=== PATIENT | female | born 1995 | race African-American/Black ===

== ENCOUNTER 2018-08-30 00:04 | Emergency (ER) | payer BC, OTHER ==
[2018-08-30 00:26] VITALS: BP 145/93
[2018-08-30] MEDS ORDERED: Ketorolac 60 MG/2 ML SDV IM ONE (01:06)
--- NOTE | 2018-08-30 01:08 | EDM.PDOC ---
ED HPI GENERAL MEDICAL PROBLEM - General Chief Complaint: Headache Stated Complaint: PT HAS MIGRAINE Time Seen by Provider: 08/30/18 01:03 - History of Present Illness INITIAL COMMENTS - FREE TEXT/NARRATIVE: HISTORY AND PHYSICAL: History of present illness: Patient 33-year-old black female presents with a concern of headache she states she had headaches prior she described this as a migraine although she does not carry that diagnosis to the no fever no chills no trauma no nausea vomiting or other complaints. Review of systems: As per history of present illness and below otherwise all systems reviewed and negative. Past medical history: As per history of present illness and as reviewed below otherwise noncontributory. Surgical history: As per history of present illness and as reviewed below otherwise noncontributory. Social history: No reported history of drug or alcohol abuse. Family history: As per history of present illness and as reviewed below otherwise noncontributory. Physical exam: HEENT: Atraumatic, normocephalic, pupils reactive, negative for conjunctival pallor or scleral icterus, mucous membranes moist, throat clear, neck supple, nontender, trachea midline. Lungs: Clear to auscultation, breath sounds equal bilaterally, chest nontender. Heart: S1S2, regular, negative for clicks, rubs, or JVD. Abdomen: Soft, nondistended, nontender. Negative for masses or hepatosplenomegaly. Negative for costovertebral tenderness. Pelvis: Stable nontender. Genitourinary: Deferred. Rectal: Deferred. Extremities: Atraumatic, negative for cords or calf pain. Neurovascular unremarkable. Neuro: Awake, alert, oriented. Cranial nerves II through XII unremarkable. Cerebellum unremarkable. Motor and sensory unremarkable throughout. Exam nonfocal. Diagnostics: CT brain Therapeutics: Toradol 60 mg IM Impression: #1 cephalgia Definitive disposition and diagnosis as appropriate pending reevaluation and review of above. head Pain Score (Numeric/FACES): 9 - Related Data Allergies Allergy/AdvReac Type Severity Reaction Status Date / Time No Known Allergies Allergy Verified 08/30/18 00:27 Home Meds: Home Meds . [No Known Home Meds] 08/30/18 [History] Past Medical History Neurological History: Reports: Migraines - Infectious Disease History Infectious Disease History: Reports: Meningitis - Past Surgical History Other Musculoskeletal Surgeries/Procedures:: hx exc of left ganglion wrist cyst , Rt ACL repair, breast augmentation Social & Family History - Family History Family Medical History: Noncontributory - Tobacco Use Smoking Status *Q: Never Smoker - Recreational Drug Use Recreational Drug Use: No ED ROS GENERAL - Review of Systems Review Of Systems: ROS reveals no pertinent complaints other than HPI. ED EXAM, GENERAL - Physical Exam Exam: See Below (dictation) Course - Vital Signs Last Recorded V/S: Last Vital Signs Temp 36.4 C 08/30/18 00:04 Pulse 90 08/30/18 00:04 Resp 18 08/30/18 00:04 BP 145/93 H 08/30/18 00:04 Pulse Ox 99 08/30/18 00:04 Departure - Departure Time of Disposition: 01:08 Disposition: Home, Self-Care 01 Condition: Good Clinical Impression: Cephalgia - Discharge Information Referrals: PCP,None [Primary Care Provider] - Additional Instructions: The following information is given to patients seen in the emergency department who are being discharged to home. This information is to outline your options for follow-up care. We provide all patients seen in our emergency department with a follow-up referral. The need for follow-up, as well as the timing and circumstances, are variable depending upon the specifics of your emergency department visit. If you don't have a primary care physician on staff, we will provide you with a referral. We always advise you to contact your personal physician following an emergency department visit to inform them of the circumstance of the visit and for follow-up with them and/or the need for any referrals to a consulting specialist. The emergency department will also refer you to a specialist when appropriate. This referral assures that you have the opportunity for followup care with a specialist. All of these measure are taken in an effort to provide you with optimal care, which includes your followup. Under all circumstances we always encourage you to contact your private physician who remains a resource for coordinating your care. When calling for followup care, please make the office aware that this follow-up is from your recent emergency room visit. If for any reason you are refused follow-up, please contact the [facility] emergency department at and asked to speak to the emergency department charge nurse. [facility] [address] [place] [id number] Motrin/Tylenol as directed follow-up primary care above call to schedule routine appointment and return as needed as discussed
--- NOTE | 2018-08-30 01:28 | CT ---
INDICATION: Headache TECHNIQUE: CT Head without i.v. contrast. COMPARISON: None FINDINGS: CSF space: The ventricles are normal for age. Brain: No evidence of mass, acute infarction or hemorrhage is seen. No mass-effect or midline shift is seen. The brain parenchyma is otherwise normal in appearance with preservation of the sims-white matter junction. Calvarium: The visualized paranasal sinuses are well aerated. The mastoid air cells are clear. The visualized orbits are grossly unremarkable. The calvarium is unremarkable in appearance with no fractures identified. IMPRESSION: 1. No evidence of acute infarction, intracranial hemorrhage, or mass-effect seen. Please note that all CT scans at this facility use dose modulation, iterative reconstruction, and/or weight-based dosing when appropriate to reduce radiation dose to as low as reasonably achievable. Dictated by: Alex Samaniego MD @ 08/30/2018 01:26:29 (Electronically Signed)
== END 2018-08-30 01:46 | disposition home or self-care (01) ==
LOC: MW.ED 00:04
DX: R51 Headache (principal)
CPT/HCPCS: 70450; 96372; 99283; J1885

== ENCOUNTER 2018-12-26 08:16 | Emergency (ER) | payer BC, OTHER ==
--- NOTE | 2018-12-26 08:33 | EDM.PDOC ---
ED HPI GENERAL MEDICAL PROBLEM - General Chief Complaint: ENT Problem Stated Complaint: SORE THROAT Time Seen by Provider: 12/26/18 08:27 - History of Present Illness INITIAL COMMENTS - FREE TEXT/NARRATIVE: HISTORY AND PHYSICAL: History of present illness: Patient is a 23-year-old black female with no significant past medical history who presents with a concern of sore throat 2 weeks she denies fever chills nausea vomiting or other complaints Review of systems: As per history of present illness and below otherwise all systems reviewed and negative. Past medical history: As per history of present illness and as reviewed below otherwise noncontributory. Surgical history: As per history of present illness and as reviewed below otherwise noncontributory. Social history: No reported history of drug or alcohol abuse. Family history: As per history of present illness and as reviewed below otherwise noncontributory. Physical exam: HEENT: Atraumatic, normocephalic, pupils reactive, negative for conjunctival pallor or scleral icterus, mucous membranes moist, throat clear, neck supple, nontender, trachea midline. Lungs: Clear to auscultation, breath sounds equal bilaterally, chest nontender. Heart: S1S2, regular, negative for clicks, rubs, or JVD. Abdomen: Soft, nondistended, nontender. Negative for masses or hepatosplenomegaly. Negative for costovertebral tenderness. Pelvis: Stable nontender. Genitourinary: Deferred. Rectal: Deferred. Extremities: Atraumatic, negative for cords or calf pain. Neurovascular unremarkable. Neuro: Awake, alert, oriented. Cranial nerves II through XII unremarkable. Cerebellum unremarkable. Motor and sensory unremarkable throughout. Exam nonfocal. Diagnostics: Rapid strep Therapeutics: None Impression: #1 medical screening exam Definitive disposition and diagnosis as appropriate pending reevaluation and review of above. Head Pain Score (Numeric/FACES): 3 - Related Data Allergies Allergy/AdvReac Type Severity Reaction Status Date / Time No Known Allergies Allergy Verified 08/30/18 00:27 Home Meds: Home Meds . [No Known Home Meds] 08/30/18 [History] Past Medical History Neurological History: Reports: Migraines - Infectious Disease History Infectious Disease History: Reports: Meningitis - Past Surgical History Other Musculoskeletal Surgeries/Procedures:: hx exc of left ganglion wrist cyst , Rt ACL repair, breast augmentation Social & Family History - Family History Family Medical History: Noncontributory ED ROS GENERAL - Review of Systems Review Of Systems: ROS reveals no pertinent complaints other than HPI. ED EXAM, GENERAL - Physical Exam Exam: See Below (The dictation) Course - Vital Signs Last Recorded V/S: Last Vital Signs Temp 36.0 C 12/26/18 08:27 Pulse 77 12/26/18 08:27 Resp 20 12/26/18 08:27 BP 124/76 12/26/18 08:27 Pulse Ox 97 12/26/18 08:27 - Orders/Labs/Meds Orders: Active Orders 24 hr Category Date Time Status CULTURE STREP A CONFIRMATION [RM] Stat Lab 12/26/18 08:28 Results STREP SCRN A RAPID W CULT CONF [RM] Stat Lab 12/26/18 08:28 Results Departure - Departure Time of Disposition: 09:23 Disposition: Home, Self-Care 01 Condition: Good Clinical Impression: Encounter for medical screening examination - Discharge Information Referrals: PCP,Unknown [Primary Care Provider] - Forms: ED Department Discharge Additional Instructions: The following information is given to patients seen in the emergency department who are being discharged to home. This information is to outline your options for follow-up care. We provide all patients seen in our emergency department with a follow-up referral. The need for follow-up, as well as the timing and circumstances, are variable depending upon the specifics of your emergency department visit. If you don't have a primary care physician on staff, we will provide you with a referral. We always advise you to contact your personal physician following an emergency department visit to inform them of the circumstance of the visit and for follow-up with them and/or the need for any referrals to a consulting specialist. The emergency department will also refer you to a specialist when appropriate. This referral assures that you have the opportunity for followup care with a specialist. All of these measure are taken in an effort to provide you with optimal care, which includes your followup. Under all circumstances we always encourage you to contact your private physician who remains a resource for coordinating your care. When calling for followup care, please make the office aware that this follow-up is from your recent emergency room visit. If for any reason you are refused follow-up, please contact the [facility] emergency department at and asked to speak to the emergency department charge nurse. [facility] [address] [place] [id number] Follow-up primary care above Motrin/Tylenol as directed push fluids and return as needed as discussed - My Orders Last 24 Hours: My Active Orders 12/26/18 08:28 CULTURE STREP A CONFIRMATION [RM] Stat STREP SCRN A RAPID W CULT CONF [RM] Stat - Assessment/Plan Last 24 Hours: My Active Orders 12/26/18 08:28 CULTURE STREP A CONFIRMATION [RM] Stat STREP SCRN A RAPID W CULT CONF [RM] Stat
[2018-12-26 08:39] VITALS: BP 124/76
== END 2018-12-26 09:42 | disposition home or self-care (01) ==
LOC: MW.ED 08:16
DX: Z00.00 Encounter for general adult medical examination without abnormal findings (principal)
CPT/HCPCS: 87081; 87880-QW; 99283

== ENCOUNTER 2019-03-22 05:38 | Emergency (ER) | payer BC, OTHER ==
[2019-03-22] MEDS ORDERED: methylPREDNISolone Sodium Succinate 125 MG/2 ML SDV IM ONE (05:49)
[2019-03-22] MEDS ORDERED: hydrOXYzine Pamoate 25 MG Cap PO ONE (05:49)
--- NOTE | 2019-03-22 05:55 | EDM.PDOC ---
ED HPI GENERAL MEDICAL PROBLEM - General Chief Complaint: Allergic Reaction Stated Complaint: ALLERGIC REACTION Time Seen by Provider: 03/22/19 05:44 - History of Present Illness INITIAL COMMENTS - FREE TEXT/NARRATIVE: HISTORY AND PHYSICAL: History of present illness: The patient is a 23-year-old female who presents with complaints of swollen eyelids bilaterally that started last night and has not improved when she woke this morning. The patient said that she notices swelling of her lower eyelids bilaterally but no other swelling or rashes and took Benadryl and went to sleep. When she woke this morning she still had the swelling and it seemed to be worse and she still had no rash no itching no eye drainage no sore throat or trouble breathing but she says that her throat feels a little scratchy. She is not sure which she may have contacted and touched her eyes with that she did wear makeup yesterday. She has no blurred vision but she has difficulty seeing because her eyelids are very swollen. She has no swelling of her mouth or throat or face. Review of systems: As per history of present illness and below otherwise all systems reviewed and negative. Past medical history: As per history of present illness and as reviewed below otherwise noncontributory. Surgical history: As per history of present illness and as reviewed below otherwise noncontributory. Social history: No reported history of drug or alcohol abuse. Family history: As per history of present illness and as reviewed below otherwise noncontributory. Physical exam: General: Well-developed well-nourished female who is speaking clearly and easily in the ED without breathlessness hoarse or muffled voice. HEENT: Atraumatic, normocephalic, pupils reactive, negative for conjunctival pallor or scleral icterus, mucous membranes moist, throat clear, neck supple, nontender, trachea midline. Sclera is slightly injected on the right but normal on the left and there is only clear tears but no drainage or crusting is appreciated. EOMs are intact and there is no periorbital crepitus tenderness or defects. Bilateral eyelids are swollen right greater than left and the swelling seems to originate at the eyelash margin and extend superiorly. There is no other oropharyngeal swelling or facial swelling appreciated and throat is completely clear. Lungs: Clear to auscultation, breath sounds equal bilaterally, chest nontender. There is no wheezing or stridor Heart: S1S2, regular rate and rhythm no overt murmurs Abdomen: Soft, nondistended, nontender. NABS. Pelvis: Deferred Genitourinary: Deferred. Rectal: Deferred. Extremities: Atraumatic, negative for cords or calf pain. Neurovascular unremarkable. Neuro: Awake, alert, oriented. Cranial nerves II through XII unremarkable. Cerebellum unremarkable. Motor and sensory unremarkable throughout. Exam nonfocal. Skin: No overt rashes or lesions are seen and turgor is normal Diagnostics: [] Therapeutics: Vistaril Solu-Medrol Impression: Contact allergic reaction, bilateral eyelid swelling Definitive disposition and diagnosis as appropriate pending reevaluation and review of above. - Related Data Allergies Allergy/AdvReac Type Severity Reaction Status Date / Time No Known Allergies Allergy Verified 08/30/18 00:27 Home Meds: Home Meds . [No Known Home Meds] 08/30/18 [History] Past Medical History Gastrointestinal History: Reports: GI Bleed Other Gastrointestinal History: colonoscopy 12/10/2018 Neurological History: Reports: Migraines - Infectious Disease History Infectious Disease History: Reports: Meningitis - Past Surgical History Other Musculoskeletal Surgeries/Procedures:: hx exc of left ganglion wrist cyst , Rt ACL repair, breast augmentation Social & Family History - Family History Family Medical History: Noncontributory - Caffeine Use Caffeine Use: Reports: None ED ROS ALLERGIC REACTION - Review of Systems Review Of Systems: ROS reveals no pertinent complaints other than HPI. ED EXAM GENERAL NO PERIP PULSE - Physical Exam Exam: See Below (See dictation) Course - Orders/Labs/Meds Orders: Active Orders 24 hr Category Date Time Status hydrOXYzine pamoate [Vistaril] Med 03/22/19 05:49 Once 25 mg PO ONETIME ONE methylPREDNISolone Sod Succ [Solu-MEDROL] Med 03/22/19 05:49 Once 125 mg IM ONETIME ONE Departure - Departure Time of Disposition: 05:54 Disposition: Home, Self-Care 01 Condition: Good Clinical Impression: Contact allergic reaction, Pain and swelling of eyelids of both eyes - Discharge Information Additional Instructions: The following information is given to patients seen in the emergency department who are being discharged to home. This information is to outline your options for follow-up care. We provide all patients seen in our emergency department with a follow-up referral. The need for follow-up, as well as the timing and circumstances, are variable depending upon the specifics of your emergency department visit. If you don't have a primary care physician on staff, we will provide you with a referral. We always advise you to contact your personal physician following an emergency department visit to inform them of the circumstance of the visit and for follow-up with them and/or the need for any referrals to a consulting specialist. The emergency department will also refer you to a specialist when appropriate. This referral assures that you have the opportunity for followup care with a specialist. All of these measure are taken in an effort to provide you with optimal care, which includes your followup. Under all circumstances we always encourage you to contact your private physician who remains a resource for coordinating your care. When calling for followup care, please make the office aware that this follow-up is from your recent emergency room visit. If for any reason you are refused follow-up, please contact the [facility] emergency department at and ask to speak to the emergency department charge nurse. [facility] Primary care- [place] [address] Please use cool compresses to eyes to help with the swelling and use all medications as prescribed. Please keep in mind that the Vistaril may make you drowsy or sleepy. If you are using the Vistaril do not take [id number] Benadryl simultaneously. Call and schedule a follow-up appointment in our clinic for follow-up care and return to ER as needed and as discussed. Please look at all eye makeup and all items that may have contacted your eyelids and facial area around her eyes yesterday to see if there is a cause for this and threw away all makeup that is older than 3 months of age. - My Orders Last 24 Hours: My Active Orders 03/22/19 05:49 hydrOXYzine pamoate [Vistaril] 25 mg PO ONETIME ONE methylPREDNISolone Sod Succ [Solu-MEDROL] 125 mg IM ONETIME ONE - Assessment/Plan Last 24 Hours: My Active Orders 03/22/19 05:49 hydrOXYzine pamoate [Vistaril] 25 mg PO ONETIME ONE methylPREDNISolone Sod Succ [Solu-MEDROL] 125 mg IM ONETIME ONE
[2019-03-22 07:06] VITALS: BP 106/62; PULSE 60
== END 2019-03-22 06:27 | disposition home or self-care (01) ==
LOC: MW.ED 05:38
DX: T78.40XA Allergy, unspecified, initial encounter (principal); H02.89 Other specified disorders of eyelid
CPT/HCPCS: 96372; 99282; A9270; J2930

== ENCOUNTER 2019-04-03 03:34 | Emergency (ER) | payer BC, OTHER ==
[2019-04-03] MEDS ORDERED: predniSONE 20 MG Tab PO ONE (03:55)
[2019-04-03] MEDS ORDERED: diphenhydrAMINE 50 MG/ML SDV IM ONE (03:55)
--- NOTE | 2019-04-03 04:45 | EDM.PDOC ---
ED HPI GENERAL MEDICAL PROBLEM - General Chief Complaint: Allergic Reaction Stated Complaint: ALLERGIC REACTION Time Seen by Provider: 04/03/19 04:31 - History of Present Illness INITIAL COMMENTS - FREE TEXT/NARRATIVE: HISTORY AND PHYSICAL: History of present illness: Patient 23-year-old female presents with concern of acute allergic reaction in the form of having awoke with itchy eyes subsequently rubbed them and developed periorbital edema and conjunctival chemosis. She had a similar episode in the recent past and was seen in the emergency department and told not to use makeup further she did use makeup again in the form of mascara and fell asleep with it. There's been no tongue or lip swelling or other complaints Review of systems: As per history of present illness and below otherwise all systems reviewed and negative. Past medical history: As per history of present illness and as reviewed below otherwise noncontributory. Surgical history: As per history of present illness and as reviewed below otherwise noncontributory. Social history: No reported history of drug or alcohol abuse. Family history: As per history of present illness and as reviewed below otherwise noncontributory. Physical exam: HEENT: Atraumatic, normocephalic, pupils reactive, negative for conjunctival pallor or scleral icterus, mucous membranes moist, throat clear, neck supple, nontender, trachea midline. Patient noted had moderate periorbital edema and ecchymosis of her conjunctiva right greater than left anterior chambers clear Lungs: Clear to auscultation, breath sounds equal bilaterally, chest nontender. Heart: S1S2, regular, negative for clicks, rubs, or JVD. Abdomen: Soft, nondistended, nontender. Negative for masses or hepatosplenomegaly. Negative for costovertebral tenderness. Pelvis: Stable nontender. Genitourinary: Deferred. Rectal: Deferred. Extremities: Atraumatic, negative for cords or calf pain. Neurovascular unremarkable. Neuro: Awake, alert, oriented. Cranial nerves II through XII unremarkable. Cerebellum unremarkable. Motor and sensory unremarkable throughout. Exam nonfocal. Diagnostics: None Therapeutics: Benadryl 50 mg IM and is on 40 mg by mouth Impression: #1 allergic conjunctivitis Definitive disposition and diagnosis as appropriate pending reevaluation and review of above. Bilateral Eye Pain Score (Numeric/FACES): 8 - Related Data Allergies Allergy/AdvReac Type Severity Reaction Status Date / Time No Known Allergies Allergy Verified 04/03/19 03:40 Home Meds: Home Meds . [No Known Home Meds] 08/30/18 [History] Past Medical History Gastrointestinal History: Reports: GI Bleed Other Gastrointestinal History: colonoscopy 12/10/2018 Neurological History: Reports: Migraines - Infectious Disease History Infectious Disease History: Reports: MRSA - Past Surgical History Other Musculoskeletal Surgeries/Procedures:: hx exc of left ganglion wrist cyst , Rt ACL repair, breast augmentation Social & Family History - Family History Family Medical History: Noncontributory - Tobacco Use Smoking Status *Q: Never Smoker - Caffeine Use Caffeine Use: Reports: Soda - Recreational Drug Use Recreational Drug Use: No ED ROS ALLERGIC REACTION - Review of Systems Review Of Systems: Comprehensive ROS is negative, except as noted in HPI. ED EXAM GENERAL NO PERIP PULSE - Physical Exam Exam: See Below (See dictation) Course - Vital Signs Last Recorded V/S: Last Vital Signs Temp 36.1 C 04/03/19 03:41 Pulse 67 04/03/19 03:41 Resp 17 04/03/19 03:41 BP 156/90 H 04/03/19 03:41 Pulse Ox 98 04/03/19 03:41 - Orders/Labs/Meds Meds: Medications Discontinued Medications Generic Name Dose Route Start Last Admin Trade Name Dayron PRBrooke Reason Stop Dose Admin Diphenhydramine HCl 50 mg 04/03/19 03:55 04/03/19 04:01 Benadryl IM 04/03/19 03:56 50 mg ONETIME ONE Administration Prednisone 40 mg 04/03/19 03:55 04/03/19 04:01 Prednisone PO 04/03/19 03:56 40 mg ONETIME ONE Administration Departure - Departure Time of Disposition: 04:44 Disposition: Home, Self-Care 01 Condition: Good Clinical Impression: Allergic conjunctivitis - Discharge Information Referrals: PCP,None [Primary Care Provider] - Additional Instructions: The following information is given to patients seen in the emergency department who are being discharged to home. This information is to outline your options for follow-up care. We provide all patients seen in our emergency department with a follow-up referral. The need for follow-up, as well as the timing and circumstances, are variable depending upon the specifics of your emergency department visit. If you don't have a primary care physician on staff, we will provide you with a referral. We always advise you to contact your personal physician following an emergency department visit to inform them of the circumstance of the visit and for follow-up with them and/or the need for any referrals to a consulting specialist. The emergency department will also refer you to a specialist when appropriate. This referral assures that you have the opportunity for followup care with a specialist. All of these measure are taken in an effort to provide you with optimal care, which includes your followup. Under all circumstances we always encourage you to contact your private physician who remains a resource for coordinating your care. When calling for followup care, please make the office aware that this follow-up is from your recent emergency room visit. If for any reason you are refused follow-up, please contact the [facility] emergency department at and asked to speak to the emergency department charge nurse. [facility] [address] [place] [id number] Avoid makeup and other possible allergens as discussed Medrol Benadryl Tobrex as prescribed follow-up primary medical doctor and ophthalmology as discussed return as needed as discussed
[2019-04-03 05:02] VITALS: BP 107/64; PULSE 54
== END 2019-04-03 04:59 | disposition home or self-care (01) ==
LOC: MW.ED 03:34
DX: H10.13 Acute atopic conjunctivitis, bilateral (principal)
CPT/HCPCS: 96372; 99283; A9270; J1200